=== PATIENT | female | born 1935 | race Caucasian/White ===

== ENCOUNTER 2019-12-18 11:49 | Outpatient (CLI) | payer MEDICARE, SELFPAY ==
--- NOTE | ~2019-12-18 | XR_ITS ---
EXAMINATION: [id number] DATE: 12/18/2019 12:36 INDICATION: Left rib pain. Fall. TECHNIQUE: Frontal and lateral views of the chest and 3 views of the left ribs were obtained. COMPARISON: Chest single view 08/24/2015, chest CT 05/22/2005 FINDINGS: CHEST TWO VIEWS: The chest demonstrates clear lungs without pneumonia, pleural effusion, or pneumotho rax. The heart size is normal. There is a moderate-sized hiatal hernia. Calcified left hilar lymph no fernie are consistent with old granulomatous disease. LEFT RIBS: There are fractures of left third rib. IMPRESSION: 1. Left third rib fractures. 2. Moderate-sized hiatal hernia. Reviewed, dictated and finalized at location B.
--- NOTE | ~2019-12-18 | XR_ITS ---
EXAMINATION: XR shoulder LT min 2V DATE: 12/18/2019 12:36 INDICATION: Left shoulder pain. TECHNIQUE: 4 views of left shoulder were obtained. COMPARISON: None. FINDINGS: Bone alignment is normal. There is mild osteoarthritis of glenohumeral joint and severe ost eoarthritis of acromioclavicular joint. There are 2 fractures of left third rib. IMPRESSION: 1. Left third rib fractures. 2. Polyarticular osteoarthritis. Reviewed, dictated and finalized at location B.
--- NOTE | ~2019-12-18 | XR_ITS ---
EXAMINATION: XR humerus LT DATE: 12/18/2019 12:36 INDICATION: Left shoulder pain. Fall. TECHNIQUE: 2 views of left shoulder on 3 radiographs were obtained. COMPARISON: None. FINDINGS: Bone alignment is normal. No fracture. There is mild osteoarthritis of glenohumeral joint a nd severe osteoarthritis of acromioclavicular joint. There is mild calcific tendinitis of the rotator cuff. There is mild elbow joint osteoarthritis. No elbow joint effusion. IMPRESSION: 1. Polyarticular osteoarthritis. 2. Mild calcific tendinitis of left rotator cuff. Reviewed, dictated and finalized at location B.
== END 2019-12-18 11:50 | disposition home or self-care (01) ==
PROVIDERS: PCP Internal Medicine; Visit Provider Internal Medicine
DX: R07.81 Pleurodynia (principal); K44.9 Diaphragmatic hernia without obstruction or gangrene; S22.32XA Fracture of one rib, left side, initial encounter for closed fracture; X58.XXXA Exposure to other specified factors, initial encounter; M19.012 Primary osteoarthritis, left shoulder; M75.32 Calcific tendinitis of left shoulder; M19.022 Primary osteoarthritis, left elbow
CPT/HCPCS: 71101; 73030; 73060